=== PATIENT | female | born 1955 | race Caucasian/White ===

== ENCOUNTER 2019-05-27 12:33 | Outpatient (CLI) | payer MEDICARE, BC ==
[~2019-05-27 12:33] MED LIST: Gadobenate Dimeglumine 529 MG/1 ML (20ML VIAL) ONE
[2019-05-27 13:34] LABS: Estimated GFR-MDRD - POC Greater than 90
--- NOTE | 2019-05-27 14:11 | MRI ---
EXAM: MR ANGIOGRAPHY OF THE NECK WITH AND WITHOUT CONTRAST: HISTORY: Abnormal carotid ultrasound. TECHNIQUE: MR angiography of the neck is performed in the axial plane with 2-D efeh-uq-sykzwl imaging. Postcontr ast coronal imaging was performed. Maximum intensity projection images are submitted for dictation. FINDINGS: Axial 2-D nvdh-[id number]-gpuhwq imaging: Based upon the nsaq-mh-akpqpt images, there does not appear to be a ny significant stenosis of the cervical, carotid, or vertebral arteries. Postcontrast imaging: There is appropriate enhancement and luminal diameter of the aortic arch. Right carotid: The right innominate artery origin, common carotid artery, carotid bifurcation and int ernal carotid artery have appropriate enhancement and luminal diameter. Left carotid: The left carotid artery origin, common carotid artery have appropriate enhancement and luminal diameter. Based upon the postcontrast images, there does appear to be short segment severe stenosis with lack of enhancement involving the left carotid bifurcation and proximal left internal c arotid artery. The remainder of the left internal carotid artery has appropriate enhancement and luminal diameter. Both cervical vertebral arteries are patent throughout their course in the neck, with the exception o f the origin of the right vertebral artery which appears a short segment moderate stenosis. Bilateral subclavian arteries are unremarkable. IMPRESSION: Findings suggesting significant stenosis involving the left carotid bifurcation and proximal internal carotid artery, based on the postcontrast coronal images. There is no corresponding narrowing on the axial 2-D aqla-bj-[id number] images. Better interrogation of the lumen is recommended with CT angiogr am of the neck. CODE T Transcribed Date/Time: 05/27/2019 2:21 PM
== END 2019-05-27 12:34 | disposition home or self-care (01) ==
LOC: MRI 12:33
PROVIDERS: ATTEND Internal Medicine Cardiovascular Disease
DX: G45.9 Transient cerebral ischemic attack, unspecified (principal); I65.22 Occlusion and stenosis of left carotid artery
CPT/HCPCS: 70549; 82565; A9577

== ENCOUNTER 2019-06-12 08:48 | Outpatient (CLI) | payer MEDICARE, BC ==
--- NOTE | 2019-06-12 11:04 | CT ---
CT ANGIOGRAM NECK: DATE: 06/12/2019. CORRELATION: Correlation made to recent MR angiogram of the neck. HISTORY: Evaluate possible carotid artery stenosis, potential abnormality on prior carotid Doppler ultrasound and MR angiogram of the neck. TECHNIQUE: Axial CT imaging at 1.25 mm intervals through the neck with IV contrast using CT angiogram protocol w ith coronal and sagittal 3-D reformatted imaging. FINDINGS: The visualized paranasal sinuses and mastoid air cells are unremarkable. Scattered emphysematous delgado ges are noted in the imaged lung apices. The retroantral and the parapharyngeal fat is clear bilaterally. The parotid glands and submandibular glands are unremarkable bilaterally. The tonsillar pillars, epiglottis and preepiglottic fat, hyoid bone, thyroid cartilage, cricoid carti darien, and thyroid gland appear grossly unremarkable. There is mild scattered atherosclerotic calcification of the aortic arch. Mild atherosclerotic calcification at the origin of the innominate artery, left subclavian artery, an d left common carotid artery. The origin of bilateral vertebral arteries appears unremarkable. No hemodynamically significant stenosis is noted at the origin of the great vessels. Bilateral vertebral arteries are unremarkable. On the basis of NASCET criteria there is no hemodynamically significant stenosis involving the common carotid artery or the internal carotid artery on either side. No lymphadenopathy is noted within the neck. Anterior discectomy and fusion hardware is present at C5-6/C6-7. There is degenerative change at the atlantoaxial interspace. There is facet hypertrophy of the upper cervical spine bilaterally. The 2 screws at C5 are slightly backed away from the fusion plate (2-3 mm), with no perihardware luce ncy evident. IMPRESSION: No acute findings. No hemodynamically significant stenosis is seen involving the internal or common c arotid artery on either side. Transcribed Date/Time: 06/12/2019 11:30 AM
[2019-06-12] MEDS ORDERED: Iopamidol 370 76% 100 ML VIAL ONE (11:38)
== END 2019-06-12 08:49 | disposition home or self-care (01) ==
LOC: CT 08:48
PROVIDERS: ATTEND Thoracic Surgery (Cardiothoracic Vascular Surgery)
DX: I65.29 Occlusion and stenosis of unspecified carotid artery (principal)
CPT/HCPCS: 70498; Q9967

== ENCOUNTER 2020-07-18 13:34 | Outpatient (CLI) | payer MEDICARE ==
--- NOTE | 2020-07-18 14:46 | MRI ---
MR the lumbar spine without contrast: 07/18/2020 History: Intervertebral disc disorder, back pain, radiculopathy COMPARISON: None. TECHNIQUE: Multiplanar multisequence MR images were obtained of lumbar spine without IV contrast FINDINGS: On the basis of 5 lumbar type vertebral bodies, conus medullaris terminates at theT12 level. Sagittal STIR imaging demonstrates no focal area of osseous marrow edema. T12-L1:Unremarkable L1-2: There is disc space narrowing and disc desiccation with no central canal or neural foraminal st enosis. Mild facet hypertrophy and anterior osteophyte formation. L2-3:Mild bilateral facet hypertrophy. Disc space narrowing with disc desiccation and mild disc bulge . No significant central canal or neural foraminal stenosis. L3-4:Mild bilateral facet hypertrophy. Mild disc space narrowing. No central canal or neural foramina l stenosis. L4-5:Mild bilateral facet hypertrophy. Minimal central disc protrusion. No associated central canal o r neural foraminal stenosis. L5-S1:Minimal right paracentral disc protrusion. No significant central canal or neural foraminal aaron nosis. Image retroperitoneal structures demonstrateno acute findings.. Incidental note is made of multiple n onspecific subcentimeter retroperitoneal lymph nodes. No enlarged lymph nodes are noted. IMPRESSION: Degenerative changes within the lumbar spine with no significant central canal or neural foraminal st enosis. Multiple retroperitoneal lymph nodes which are nonenlarged but are abnormal in number. Lymphadenopath y is a possibility. Recommend CT of the abdomen and pelvis CODE T
--- NOTE | 2020-07-18 14:54 | RAD ---
XR Lumbar Spine Min 4 View History: Intervertebral disc disorder Comparison: MRI same day Findings: No acute fracture or malalignment. No significant listhesis. No abnormal translation with f lexion or extension. Impression: No abnormal translation with flexion or extension.
== END 2020-07-18 13:35 | disposition home or self-care (01) ==
LOC: BICMRI 13:34
PROVIDERS: ATTEND Nurse Practitioner Family
DX: M51.16 Intervertebral disc disorders with radiculopathy, lumbar region (principal); M47.26 Other spondylosis with radiculopathy, lumbar region
CPT/HCPCS: 72110; 72148

== ENCOUNTER 2020-08-23 10:24 | Outpatient (CLI) | payer MEDICARE ==
--- NOTE | 2020-08-24 09:20 | MMO ---
Bilateral MAMMO Bilat Screen [facility]. CLINICAL HISTORY: Patient is 65 years old and is seen for screening. The patient has the following family history of breast cancer: maternal aunt, malignant (generic). The patient has no personal history of cancer. The patient has a history of right Ultrasound Guided Core Biopsy in 2015 - benign. VIEWS: The views performed were: bilateral craniocaudal with tomosynthesis and bilateral mediolateral oblique with tomosynthesis. FILMS COMPARED: The present examination has been compared to prior imaging studies performed at [facility] on 03/15/2015, 02/21/2016 and 04/01/2017, and at [facility] on 03/10/2015. This study has been interpreted with the assistance of computer-aided detection. MAMMOGRAM FINDINGS: There are scattered fibroglandular densities. There is a biopsy clip seen in the right breast. There are no suspicious masses, suspicious calcifications, or new areas of architectural distortion. IMPRESSION: THERE IS NO MAMMOGRAPHIC EVIDENCE OF MALIGNANCY. A ROUTINE FOLLOW-UP MAMMOGRAM IN 1 YEAR IS RECOMMENDED. THE RESULTS OF THIS EXAM WERE SENT TO THE PATIENT. ACR BI-RADS Category 2 - Benign finding MAMMOGRAPHY NOTE: 1. A negative mammogram report should not delay a biopsy if a dominant of clinically suspicious mass is present. 2. Approximately 10% to 15% of breast cancers are not detected by mammography. 3. Adenosis and dense breasts may obscure an underlying neoplasm. Reported by: DUDLEY FORD MD Electonically Signed: [id number]
== END 2020-08-23 10:25 | disposition home or self-care (01) ==
LOC: BICMAMMO 10:24
PROVIDERS: ATTEND Family Medicine
DX: Z12.31 Encounter for screening mammogram for malignant neoplasm of breast (principal); Z80.3 Family history of malignant neoplasm of breast; Z91.89 Other specified personal risk factors, not elsewhere classified
CPT/HCPCS: 77063; 77067

== ENCOUNTER 2021-07-28 10:28 | Outpatient (CLI) | payer MEDICARE | END 2021-07-28 10:29 | disposition home or self-care (01) | LOC: MRI 10:28 | PROVIDERS: ATTEND Nurse Practitioner Family | DX: M47.817 Spondylosis without myelopathy or radiculopathy, lumbosacral region (principal); M47.816 Spondylosis without myelopathy or radiculopathy, lumbar region; R59.0 Localized enlarged lymph nodes | CPT/HCPCS: 72120; 72148 ==

== ENCOUNTER 2021-08-04 09:54 | Outpatient (CLI) | payer MEDICARE ==
[2021-08-04 12:19] LABS: Estimated GFR-MDRD - POC Greater than 90
[2021-08-04] MEDS ORDERED: Iopamidol 370 76% 100 ML VIAL ONE (14:38)
== END 2021-08-04 09:55 | disposition home or self-care (01) ==
LOC: CT 09:54
PROVIDERS: ATTEND Nurse Practitioner Family
DX: R59.1 Generalized enlarged lymph nodes (principal); K76.89 Other specified diseases of liver
CPT/HCPCS: 71260; 74177; 82565; Q9967

== ENCOUNTER 2021-09-12 12:20 | Day surgery (SDC) | payer MEDICARE ==
[2021-09-12] MEDS ORDERED: Lidocaine 1% PF 5 ML VIAL ONE (12:33)
[2021-09-12] MEDS ORDERED: Sodium Bicarbonate 2.5 MEQ/5 ML VIAL ONE (12:33)
[2021-09-12 14:19] VITALS: BP 119/48; TEMP 97.9
== END 2021-09-12 13:40 | disposition home or self-care (01) ==
LOC: ULT 12:20
PROVIDERS: ATTEND Internal Medicine Hematology & Oncology
PROC: 07D63ZX Extraction of Left Axillary Lymphatic, Percutaneous Approach, Diagnostic (ICD-10-PCS; principal; 2021-09-12)
DX: C85.14 Unspecified B-cell lymphoma, lymph nodes of axilla and upper limb (principal); E78.5 Hyperlipidemia, unspecified; J44.9 Chronic obstructive pulmonary disease, unspecified; K21.9 Gastro-esophageal reflux disease without esophagitis; F17.210 Nicotine dependence, cigarettes, uncomplicated; Z79.899 Other long term (current) drug therapy; Z91.041 Radiographic dye allergy status
CPT/HCPCS: 20206; 88184; 88305; 88341; 88342; 88360

== ENCOUNTER 2021-12-20 14:27 | Outpatient (CLI) | payer MEDICARE | END 2021-12-20 14:28 | disposition home or self-care (01) | LOC: BICRAD 14:27 | PROVIDERS: ATTEND Nurse Practitioner Family | DX: M25.552 Pain in left hip (principal) | CPT/HCPCS: 72170 ==

== ENCOUNTER 2022-07-06 08:46 | Outpatient (CLI) | payer MEDICARE | END 2022-07-06 08:47 | disposition home or self-care (01) | LOC: CT 08:46 | PROVIDERS: ATTEND Internal Medicine Hematology & Oncology | DX: C83.00 Small cell B-cell lymphoma, unspecified site (principal); R59.0 Localized enlarged lymph nodes | CPT/HCPCS: 74177 ==

== ENCOUNTER 2024-02-04 09:44 | Outpatient (CLI) | payer MEDICARE | END 2024-02-04 09:45 | disposition home or self-care (01) | LOC: BICMRI 09:44 | PROVIDERS: ATTEND Nurse Practitioner Pediatrics | DX: M47.26 Other spondylosis with radiculopathy, lumbar region (principal); M47.815 Spondylosis without myelopathy or radiculopathy, thoracolumbar region; R59.0 Localized enlarged lymph nodes | CPT/HCPCS: 72100; 72148 ==

== ENCOUNTER 2024-06-24 11:49 | Outpatient (CLI) | payer MEDICARE | END 2024-06-24 11:50 | disposition home or self-care (01) | LOC: CT 11:49 | PROVIDERS: ATTEND Internal Medicine Hematology & Oncology | DX: C83.08 Small cell B-cell lymphoma, lymph nodes of multiple sites (principal); R59.1 Generalized enlarged lymph nodes; R59.0 Localized enlarged lymph nodes | CPT/HCPCS: 36415; 74177; 82565 ==

== ENCOUNTER 2025-02-23 10:10 | Day surgery (SDC) | payer MEDICARE ==
[2025-02-22 09:25] VITALS: BMI 27.4
[2025-02-23] MEDS ORDERED: Lidocaine 1% PF 5 ML VIAL ONE (10:26)
[2025-02-23] MEDS ORDERED: Ondansetron PF 4 MG/2 ML Vial ONE (10:26)
[2025-02-23] MEDS ORDERED: Rocuronium Bromide 10 MG/ML (10ML VIAL) ONE (10:26)
[2025-02-23] MEDS ORDERED: SUGAMMADEX SODIUM 200 MG/2 ML VIAL ONE (10:27)
[2025-02-23] MEDS ORDERED: PROPOFOL 40 ML ONE (10:27)
[2025-02-23] MEDS ORDERED: fentaNYL PF 100 MCG/2 ML SYRINGE ONE (10:27)
[2025-02-23] MEDS ORDERED: Lidocaine 4% PF 5 ML AMP ONE (10:50)
== END 2025-02-23 14:26 | disposition home or self-care (01) ==
LOC: SDC 10:10
PROVIDERS: ATTEND Internal Medicine
PROC: 07978ZX Drainage of Thorax Lymphatic, Via Natural or Artificial Opening Endoscopic Approach, Diagnostic (ICD-10-PCS; principal; 2025-02-23)
DX: C96.9 Malignant neoplasm of lymphoid, hematopoietic and related tissue, unspecified (principal); C91.90 Lymphoid leukemia, unspecified not having achieved remission; C34.12 Malignant neoplasm of upper lobe, left bronchus or lung; E78.5 Hyperlipidemia, unspecified; Z87.891 Personal history of nicotine dependence; Z98.51 Tubal ligation status; Z91.041 Radiographic dye allergy status; Z79.899 Other long term (current) drug therapy
CPT/HCPCS: 31652; J1100; J2405; J2704; 88112; 88184; 88185; 88305; 93005; J7620

== ENCOUNTER 2025-06-10 08:00 | Outpatient (CLI) | payer MEDICARE | END 2025-06-10 08:01 | disposition home or self-care (01) | LOC: PET 08:00 | PROVIDERS: ATTEND Internal Medicine Hematology & Oncology | DX: C34.12 Malignant neoplasm of upper lobe, left bronchus or lung (principal); C83.08 Small cell B-cell lymphoma, lymph nodes of multiple sites; R59.0 Localized enlarged lymph nodes; R91.8 Other nonspecific abnormal finding of lung field | CPT/HCPCS: 78815; A9552 ==

== ENCOUNTER 2025-06-28 11:00 | Inpatient (IN) | payer MEDICARE ==
[2025-06-30 14:50] LABS: Hematocrit 32.3 % (36.0-47.0); Hemoglobin 10.5 g/dL (12.0-16.0); Mean Corpuscular Hemoglobin 29.2 pg (27.0-31.0); Mean Corpuscular Volume 90.0 fL (78.0-98.0); Platelet Count 256 10x3/uL (130-400); Red Blood Cell (RBC) Count 3.59 mill/uL (4.20-5.40); White Blood Cell (WBC) Count 11.49 10x3/uL (4.8-10.8)
[2025-06-30 15:04] LABS: Anion Gap 15 mmol/L (10-20); BUN (Urea Nitrogen) 22 mg/dL (9.8-20.1); Calc. Creatinine Clearance 0 mL/min (70-130); Calcium 9.7 mg/dL (7.8-10.44); Carbon Dioxide 22 mmol/L (23-31); Chloride 109 mmol/L (98-107); Glucose 167 mg/dL (83-110); Potassium 3.5 mmol/L (3.5-5.1); Sodium 142 mmol/L (136-145)
[2025-06-30 15:19] LABS: Anisocytosis SLIGHT = 6-15 cells HPF (0-5); Ovalocytes SLIGHT = 2-5 cells HPF (0-1); Platelet Adequacy Comment Platelets Normal; Poikilocytosis SLIGHT = 6-15 cells HPF (0-5); Polychromasia SLIGHT = 2-3 cells HPF (0-2); Smudge Cells 2.0 %
[2025-07-01] MEDS ORDERED: Bupivacaine 0.25% HCL 30 ML VIAL ONE (06:31)
[2025-07-01] MEDS ORDERED: fentaNYL PF 100 MCG/2 ML SYRINGE ONE ×4 (07:00→11:43)
[2025-07-01] MEDS ORDERED: Glycopyrrolate 0.2 MG/ML 5 ML SYRINGE ONE (07:00)
[2025-07-01] MEDS ORDERED: Lidocaine 1% PF 5 ML VIAL ONE (07:00)
[2025-07-01] MEDS ORDERED: Ondansetron PF 4 MG/2 ML Vial ONE ×2 (07:00→11:30)
[2025-07-01] MEDS ORDERED: Lidocaine 2% 6 ML (Jelly) SYR ONE (07:13)
[2025-07-01] MEDS ORDERED: Rocuronium Bromide 10 MG/ML (10ML VIAL) ONE ×2 (07:45)
[2025-07-01] MEDS ORDERED: PHENYLEPHRINE-NS 100 MCG/ML 10 ML SYRINGE ONE (07:45)
[2025-07-01] MEDS ORDERED: Albuterol HFA (OR) 200 PUFF INH ONE (07:45)
[2025-07-01] MEDS ORDERED: PROPOFOL 200 MG/20 ML VIAL ONE (07:45)
[2025-07-01] MEDS ORDERED: HYDROmorphone 2 MG/ML VIAL ONE (08:01)
[2025-07-01] MEDS ORDERED: SUGAMMADEX SODIUM 200 MG/2 ML VIAL ONE ×2 (10:08→10:15)
[2025-07-01] MEDS ORDERED: Ondansetron PF 4 MG/2 ML Vial IVP PRN (11:20)
[2025-07-01] MEDS ORDERED: hydrALAZINE 20 MG/ML VIAL SLOW IVP PRN (11:20)
[2025-07-01] MEDS ORDERED: HYDROmorphone 0.5 MG/0.5 ML SYRINGE ONE ×5 (11:52→14:29)
[2025-07-01 13:31] LABS: Anion Gap 12 mmol/L (10-20); BUN (Urea Nitrogen) 23 mg/dL (9.8-20.1); Calc. Creatinine Clearance 48 mL/min (70-130); Calcium 8.2 mg/dL (7.8-10.44); Carbon Dioxide 21 mmol/L (23-31); Chloride 114 mmol/L (98-107); Glucose 187 mg/dL (83-110); Potassium 4.0 mmol/L (3.5-5.1); Sodium 143 mmol/L (136-145)
[2025-07-01 13:32] LABS: #Basophils 0.04 10x3/uL (0.0-0.2); #Eosinophils Less than 0.03 10x3/uL (0.0-0.7); #Monocytes 0.48 10x3/uL (0.11-0.59); #Neutrophils 16.75 10x3/uL (1.40-6.50); %Basophils 0.2 % (0.0-1.0); %Eosinophils 0.1 % (0.0-10.0); %Lymphocytes 11.1 % (21.0-51.0); %Monocytes 2.5 % (0.0-10.0); %Neutrophils 85.5 % (42.0-75.0); Hematocrit 30.3 % (36.0-47.0); Hemoglobin 9.2 g/dL (12.0-16.0); Mean Corpuscular Hemoglobin 28.8 pg (27.0-31.0); Mean Corpuscular Volume 94.7 fL (78.0-98.0); Platelet Count 235 10x3/uL (130-400); Red Blood Cell (RBC) Count 3.20 mill/uL (4.20-5.40); White Blood Cell (WBC) Count 19.57 10x3/uL (4.8-10.8)
[2025-07-01] MEDS: Ketorolac Tromethamine 30 MG (1 mL) VIAL IVP SCH (15:07)
[2025-07-01] MEDS: Acetaminophen 325 MG TAB PO SCH (17:36)
[2025-07-01] MEDS: Gabapentin 300 MG CAP PO SCH ×2 (17:37→20:13)
[2025-07-01] MEDS ORDERED: Glucagon 1 MG/ML KIT IM PRN (18:15)
[2025-07-01] MEDS ORDERED: Dextrose 50% Abboject 50 ML SYRINGE SLOW IVP PRN (18:15)
[2025-07-01] MEDS: Mometasone 100 MCG HFA INHALER (RT USE) INH SCH (19:18)
[2025-07-01 19:21] VITALS: BMI 30.7
[2025-07-01 19:26] VITALS: BP 120/78
[2025-07-01] MEDS: metFORMIN 500 MG TAB PO SCH (20:13)
[2025-07-02] MEDS: HYDROcodone/Acetaminophen 5/325 mg Tablet PO PRN ×2 (02:00→16:49)
[2025-07-02] MEDS: Pantoprazole 40 MG DR.TAB PO SCH (08:40)
[2025-07-02 10:11] VITALS: TEMP 98.1
[2025-07-02] MEDS: Heparin 5,000 UNITS/ML VIAL SC SCH (18:31)
[2025-07-06] MEDS ORDERED: FLU (Fluad Triv) 25-26 (65UP)PF 45 MCG/0.5 ML Syringe IM ONE (09:00)
== END 2025-07-03 10:27 | disposition home or self-care (01) | DRG 165 ==
LOC: SURG A 07-01 05:58 → IMCU/EMU 07-01 17:07
PROVIDERS: ADMIT Student in an Organized Health Care Education/Training Program; ATTEND Student in an Organized Health Care Education/Training Program
PROC: 0BTG4ZZ Resection of Left Upper Lung Lobe, Percutaneous Endoscopic Approach (ICD-10-PCS; principal; 2025-07-01)
PROC: 07B74ZZ Excision of Thorax Lymphatic, Percutaneous Endoscopic Approach (ICD-10-PCS; 2025-07-01)
PROC: 8E0W4CZ Robotic Assisted Procedure of Trunk Region, Percutaneous Endoscopic Approach (ICD-10-PCS; 2025-07-01)
DX: C34.12 Malignant neoplasm of upper lobe, left bronchus or lung (principal)
CPT/HCPCS: 36415; 36416; 71045; 80048; 85025; 86850; 86900; 86901; 88305; 88309; 88312; 88341; 88342; 94640; 94664; A4314; C1776; C9250-JZ; J0169; J0665; J1100; J1171; J1885; J2405; J2704; S2900

== ENCOUNTER 2025-06-30 13:40 | Outpatient (CLI) | payer MEDICARE | END 2025-06-30 13:41 | disposition home or self-care (01) | LOC: LABBT 13:40 | PROVIDERS: ATTEND Student in an Organized Health Care Education/Training Program | DX: Z01.818 Encounter for other preprocedural examination (principal); C34.12 Malignant neoplasm of upper lobe, left bronchus or lung | CPT/HCPCS: 71046; 80048; 85025; 86850; 86900; 86901; 93005; 93010 ==

== ENCOUNTER 2025-07-03 20:14 | Emergency (ER) | payer MEDICARE | END 2025-07-03 21:08 | disposition home or self-care (01) | LOC: ERS 20:14 | DX: T81.89XA Other complications of procedures, not elsewhere classified, initial encounter (principal); G89.18 Other acute postprocedural pain; E11.9 Type 2 diabetes mellitus without complications; Z87.891 Personal history of nicotine dependence | CPT/HCPCS: 99283 ==

== ENCOUNTER 2025-07-19 13:33 | Outpatient (CLI) | payer MEDICARE | END 2025-07-19 13:34 | disposition home or self-care (01) | LOC: RAD 13:33 | PROVIDERS: ATTEND Student in an Organized Health Care Education/Training Program | DX: C34.12 Malignant neoplasm of upper lobe, left bronchus or lung (principal) | CPT/HCPCS: 71046 ==